=== PATIENT | female | born 1990 | race Two or more races ===

== ENCOUNTER 2018-01-29 05:04 | Emergency (ER) | payer MEDICAID ==
[~2018-01-29] VITALS: Ht 157.5 cm; Wt 79.4 kg
[2018-01-29] MEDS ORDERED: HYDROmorphone 1mg/ml Carpuject IVP ONE (05:30)
[2018-01-29] MEDS ORDERED: cefTRIAXone 1 GM in NS 55 ML IVPB ONE (05:30)
[2018-01-29] MEDS ORDERED: Vancomycin 1.5gm/D5W 250ml 250 ML IVPB ONE (05:30)
[2018-01-29 05:42] VITALS: BP 117/76
[2018-01-29 05:53] LABS: EOSINOPHILS % (AUTO) 1.4 % (0.0-3.0); HEMOGLOBIN 14.3 G/DL (12.0-16.0); LYMPHOCYTES % (AUTO) 21.5 % (20.0-45.0); MEAN CORPUSCULAR VOLUME 87 FL (80-99); MONOCYTES % (AUTO) 6.7 % (1.0-10.0); NEUTROPHILS % (AUTO) 69.4 % (45.0-75.0); PLATELET COUNT 434 K/UL (150-450); RED BLOOD COUNT 4.74 M/UL (4.20-5.40); RED CELL DISTRIBUTION WIDTH 11.1 % (11.6-14.8)
[2018-01-29] MEDS ORDERED: DOXYCYCLINE MO100 MG ORAL (05:55)
[2018-01-29 05:56] LABS: WHITE BLOOD COUNT 14.3 K/UL (4.8-10.8)
--- NOTE | 2018-01-29 05:56 | Emergency Room Report ---
History of Present Illness General Chief Complaint: Pain Source: Patient Present Illness HPI This is a 27-year-old female with no significant past medical history. She presents with right breast pain. Onset for last 2-3 days. She was seen at [facility] on the . Labs are unremarkable. She had an ultrasound which show soft tissue edema but no fluid collection. She was discharged on clindamycin and [place]. She only filled the clindamycin prescription. She is down here and [place] visiting family in because of increasing pain she came to the hospital. Pain is 10 out of 10. Worse with movement. No fever chills but no nausea no vomiting. occasional purulent discharge from the nipple with squeezing. She is not and is not breast-feeding. Allergies: Coded Allergies: No Known Allergies (Unverified , 01/29/18) Patient History Past Medical History: see triage record, old chart reviewed Past Surgical History: none Pertinent Family History: none Social History: Denies: smoking Last Menstrual Period: 01/25/18 Now: No Immunizations: other Reviewed Nursing Documentation: PMH: Agreed; PSxH: Agreed Nursing Documentation-PMH Past Medical History: No History, Except For Hx Cardiac Problems: No - Right breast Cellulitis Review of Systems Eye: Denies: eye pain, blurred vision ENT: Denies: ear pain, nose congestion, throat swelling Respiratory: Denies: cough, shortness of breath Cardiovascular: Denies: chest pain, palpitations Gastrointestinal: Denies: abdominal pain, diarrhea, nausea, vomiting Musculoskeletal: Denies: back pain, joint pain Skin: Denies: rash Neurological: Denies: headache, numbness Endocrine: Denies: increased thirst, increased urine Hematologic/Lymphatic: Denies: easy bruising All Other Systems: negative except mentioned in HPI Physical Exam Vital Signs Date Time Temp Pulse Resp B/P (MAP) Pulse Ox O2 Delivery O2 Flow Rate FiO2 01/29/18 05:11 98.0 95 16 117/76 99 Room Air 98.1 vitals normal Sp02 EP Interpretation: reviewed, normal General Appearance: well appearing, no apparent distress, alert Head: normocephalic, atraumatic Eyes: bilateral eye PERRL, bilateral eye EOMI ENT: hearing grossly normal, normal pharynx Neck: full range of motion, supple, no meningismus Respiratory: chest non-tender, lungs clear, normal breath sounds, other - Breast exam done with female RNs as chaperones. Right breast, just medial to the area low at 2 to 3 o'clock position, there is an indurated area of about 2- 3 cm. Very tender to palpation. No redness. No discharge from nipple. Cardiovascular #1: regular rate, rhythm, no murmur Gastrointestinal: normal bowel sounds, non tender, no mass, no organomegaly, no bruit, non-distended Musculoskeletal: back normal, gait/station normal, normal range of motion Psychiatric: mood/affect normal Skin: warm/dry Procedures Incision and Drainage Incision and Drainage : Consent: Verbal Site: right breast Blade Size: 11 I & D Procedure: betadine prep, sterile drapes applied, gauze wick placed Anesthesia: 1% Lidocaine Volume Anesthetic (ccs): 5 Patient Tolerated: Well Complications: None Progress Area cleaned with Betadine and then chlorhexidine. Local anesthetic with 1% lidocaine without epinephrine. Using an 18-gauge needle, was able to aspirate scant amount of pus over the most purulent area. I made a 1 cm incision along the skin line of the areola. Loculated area open up with Brenda forcep. Minimal amount of pus expressed. I place a small iodoform gauze to the area. Patient tolerated procedure without problem Medical Decision Making Diagnostic Impression: Primary Impression: Abscess of breast, right ER Course Patient with a small abscess of the right breast. She is not and not breast-feeding. Labs unremarkable. Gave her a dose of vancomycin and Rocephin here. We'll discharge home with addition of doxycycline. I called [facility] and verified the ultrasound reading. It only showed soft tissue edema worisome for underlying cellulitis. No fluid collection seen. This is most likely early abscess formation now. Last Vital Signs Date Time Temp Pulse Resp B/P (MAP) Pulse Ox O2 Delivery O2 Flow Rate FiO2 01/29/18 05:11 98.0 95 16 117/76 99 Room Air 98.1 Status: improved Disposition: HOME, SELF-CARE Condition: Stable Scripts Doxycycline Monohydrate* (DOXYCYCLINE MONOHYDRATE*) 100 Mg Capsule 100 MG ORAL Q12H, #14 CAP 0 Refills Prov: PRAVEEN RANGEL M.D. 01/29/18 Additional Instructions: Warm compress to breast. Follow-up within 2 days for recheck. Return if worse. PRAVEEN RANGEL M.D. Jan 29, 2018 05:56
[2018-01-29 06:06] LABS: ANION GAP 11 mmol/L (5-15); BLOOD UREA NITROGEN 10 mg/dL (7-18); CALCIUM 9.4 MG/DL (8.5-10.1); CARBON DIOXIDE 25 MMOL/L (21-32); CHLORIDE 101 MMOL/L (98-107); CREATININE 0.7 MG/DL (0.55-1.30); POTASSIUM 4.1 MMOL/L (3.5-5.1); SODIUM 137 MMOL/L (136-145)
[2018-01-29 08:17] VITALS: BP 118/76
== END 2018-01-29 08:21 | disposition home or self-care (01) ==
LOC: EMR 05:30
DX: N61.1 Abscess of the breast and nipple (principal)
CPT/HCPCS: 10060; 36415; 80048; 85025; 96361; 96374; 96375; 99284; J0696; J1170; J2405; J3370

== ENCOUNTER 2018-01-31 11:33 | Emergency (ER) | payer MEDICAID ==
[~2018-01-31] VITALS: Ht 157.5 cm; Wt 79.4 kg
[~2018-01-31 11:33] MED LIST: DOXYCYCLINE MO100 MG ORAL
[2018-01-31 12:18] VITALS: BP 111/71
--- NOTE | 2018-01-31 12:50 | Emergency Room Report ---
History of Present Illness General Chief Complaint: Wound Recheck/Suture Removal Source: Patient Present Illness HPI 27-year-old female presents ED for evaluation. Patient here for wound check. Had I and D performed on her right breast 2 days ago. States pain is overall improved. Here to have packing removed. Pain is currently 5 out of 10, dull, nonradiating. Currently taking antibiotic prescribed. Denies fevers or chills. Denies any discharge. No other aggravating or relieving factors. Denies any other associated symptoms Allergies: Coded Allergies: No Known Allergies (Unverified , 01/29/18) Patient History Past Surgical History: none Pertinent Family History: none Social History: Denies: smoking, alcohol use, drug use Last Menstrual Period: 3-21 Now: No Immunizations: UTD Reviewed Nursing Documentation: PMH: Agreed; PSxH: Agreed Nursing Documentation-PMH Past Medical History: No History, Except For Hx Cardiac Problems: No - Right breast Cellulitis Review of Systems All Other Systems: negative except mentioned in HPI Physical Exam Vital Signs Date Time Temp Pulse Resp B/P (MAP) Pulse Ox O2 Delivery O2 Flow Rate FiO2 01/31/18 11:40 98.3 79 18 108/68 98 Room Air 98.2 Sp02 EP Interpretation: reviewed, normal General Appearance: no apparent distress, alert, GCS 15, non-toxic Head: normocephalic Eyes: bilateral eye normal inspection, bilateral eye PERRL ENT: normal ENT inspection Neck: normal inspection Respiratory: normal inspection Cardiovascular #1: normal inspection Gastrointestinal: normal inspection Rectal: deferred Genitourinary: no CVA tenderness Musculoskeletal: normal inspection Neurologic: alert, oriented x3, responsive, motor strength/tone normal, sensory intact, speech normal Psychiatric: normal inspection Skin: other - abscess site C/D/I, no active drainge. improved induration/ erythema Lymphatic: normal inspection Medical Decision Making Diagnostic Impression: Primary Impression: Encounter for wound re-check Additional Impression: Breast abscess of female ER Course Hospital Course 27-year-old F presents to ED for wound check. s/p I&D R breast abscess Clinical course Patient placed on stretcher. Wound appears clean dry and intact with induration and erythema improved compared to prior visit. Packing removed. No additional intervention at this time Discussed with patient and . Recommend continuing antibiotics. Warm compresses. Follow-up with PMD Diagnosis - encounter for wound re-check, breast abscess Stable and discharged to home. continue abx as directed. Followup with PMD. Return to ED if any signs of infection develop Last Vital Signs Date Time Temp Pulse Resp B/P (MAP) Pulse Ox O2 Delivery O2 Flow Rate FiO2 01/31/18 12:18 98.1 71 16 111/71 100 Room Air 98.2 Status: improved Disposition: HOME, SELF-CARE Condition: Stable Referrals: NOT CHOSEN IPA/,REFERRING (PCP) Patient Instructions: Wound Check Additional Instructions: complete antibiotics. warm compresses. f/u with PMD. return to ED if symptoms recur/worsen. LAKISHA MILLER M.D. Jan 31, 2018 12:50
== END 2018-01-31 12:20 | disposition home or self-care (01) ==
LOC: EMR 11:55
DX: Z48.03 Encounter for change or removal of drains (principal); N61.1 Abscess of the breast and nipple
CPT/HCPCS: 99281

== ENCOUNTER 2018-03-31 14:18 | Emergency (ER) | payer SELFPAY ==
[~2018-03-31] VITALS: Ht 157.5 cm; Wt 81.6 kg
[2018-03-31] MEDS ORDERED: Acetaminophen 500mg (ES) tab ORAL ONE (15:00)
--- NOTE | 2018-03-31 15:04 | Emergency Room Report ---
History of Present Illness General Chief Complaint: General Complaint Source: Patient Present Illness HPI 27-year-old female patient presents ER complaining of abscess on her right breast and swelling in legs. Patient reports abscess has been present for 2 months, states that he slipped and seen by on CT and treated. Reports had abscess drained 2 months ago. Reports abscess never fully went away, states was seen at another ER 2 days ago and prescribed Bactrim, currently taking medication, reports test performed at that time negative.. Reports has not had any mammogram performed. Denies fever, shortness of breath, weight loss. Patient also complains of bilateral foot swelling. Patient reports pain with walking. denies past medical history, not currently taking any medications. Denies history of cancer or drug use, denies currently taking control medications. Denies at this time. denies recent travel. LMP 02/21/18. Allergies: Coded Allergies: No Known Allergies (Unverified , 01/29/18) Patient History Past Medical History: see triage record Reviewed Nursing Documentation: PMH: Agreed; PSxH: Agreed Nursing Documentation-PMH Past Medical History: No History, Except For Hx Cardiac Problems: No - Right breast Cellulitis Review of Systems All Other Systems: negative except mentioned in HPI Physical Exam Vital Signs Date Time Temp Pulse Resp B/P (MAP) Pulse Ox O2 Delivery O2 Flow Rate FiO2 03/31/18 14:33 98.3 96 16 112/70 98 Room Air 98.2 Sp02 EP Interpretation: reviewed, normal General Appearance: well appearing, no apparent distress, alert, GCS 15, non- toxic Head: normocephalic, atraumatic Eyes: bilateral eye normal inspection, bilateral eye PERRL ENT: hearing grossly normal, normal pharynx, no angioedema, normal voice, uvula midline, moist mucus membranes Neck: full range of motion Respiratory: lungs clear, normal breath sounds, no rhonchi, no respiratory distress, no accessory muscle use, no wheezing, speaking full sentences Cardiovascular #1: regular rate, rhythm, no edema Gastrointestinal: non tender, soft, no mass, non-distended, no guarding, no rebound Genitourinary: no CVA tenderness Musculoskeletal: back normal, digits/nails normal, gait/station normal, normal range of motion, non-tender, Tim's Sign negative, swelling - bilateral feet, bony changes noted in PIP joints of hands Neurologic: alert, oriented x3, responsive, motor strength/tone normal, sensory intact Psychiatric: mood/affect normal Skin: other - right breasts: 4 cm round mass at 1 to 2 o'clock position of right breast, small incision noted at the inferior aspect, no active drainage, small amount of blood noted, no pus, Lymphatic: no adenopathy Medical Decision Making PA Attestation Dr. Leone is my supervising Physician whom patient management has been discussed with. Diagnostic Impression: Primary Impression: Breast abscess of female Additional Impressions: Swollen feet ER Course Pt. presents to the ED c/o abscess and feet swelling. multiple differentials considered. Does not require imaging at this time. Vital signs: are WNL, pt. is afebrile ordered labs, Medication an ultrasound. ER course: Swelling of feet and hands likely related to possible underlying systemic disease including but not limited to arthritis and/or SLE, will order ESR. Patient seen and evaluated with Dr. Leone, decreased with treatment plan. Urinalysis shows no nitrites, many epithelial cells, low suspicion for UTI, patient asymptomatic, does not require antibiotic treatment at this time. Urine positive, ordered pelvic ultrasound and beta hCG labs. Provided Tylenol for pain. Instructed patient to discontinue Bactrim. Will provide alternative abx treatment. Surgical consult Dr. Rueda for breast abscess, see his attached note. Apply warm compresses, will provide antibiotic coverage, stop taking Bactrim. ultrasound of her right breast shows a 4 cm hypoechoic structure, likely abscess , provide patient with copy of report. RICE method, applied [place] wraps to patient's feet bilaterally. Take Tylenol for pain, do not take Motrin or other NSAIDs. CBC and CMP unremarkable, slight elevation of WBC likely related to versus abscess versus pain. ESR elevated, possibly related to underlying etiology, informed patient of results, follow up with primary care provider and requests referral to acid patroller. Discuss further treatment at referral at that time. Patient begin vitamins to take Tylenol for pain symptoms. [place] wraps applied to feet bilaterally. Patient reports pain symptoms improved during stay. Patient able to ambulate independently. pelvic ultrasound shows no intrauterine . . HCG levels 77, likely too early in to visualize IUP vs ectopic vs spontaneous , instructed patient to follow-up with [facility] for repeat imaging and serial beta hCG levels. Provided patient with contact information for free and low-cost healthcare clinics. Patient reports she will followup in 1-2 days for repeat images and labs. Patient blood type O, Rh antibody negative, followup with OBGYN, may require RHOGAM. Informed patient of blood type. Patient resting comfortably, in no acute distress, nontoxic appearing, patient discharged home. DISCHARGE: Rx provided for Tylenol Rx provided for Keflex At this time pt. is stable for d/c to home. Patient is resting comfortably, in no acute distress, nontoxic appearing. Will provide printed patient care instructions and any necessary prescriptions. Care plan and follow up instructions have been discussed with the patient prior to discharge. Patient instructed to follow-up with primary care provider in 2 - 3 days for wound recheck. Patient questions asked and answered. Patient reports understanding and agreement to treatment plan. ER precautions given. Patient instructed to return to ER immediately for any new or worsening of symptoms including but not limited to fever, worsening of pain symptoms, worsening of erythema, red streaking. - Please note that this Emergency Department Report was dictated using [employer]jix[employer] surgeon technology software, occasionally this can lead to erroneous entry secondary to interpretation by the dictation equipment. Labs Test 03/31/18 15:19 White Blood Count 12.9 K/UL (4.8-10.8) Red Blood Count 4.29 M/UL (4.20-5.40) Hemoglobin 12.3 G/DL (12.0-16.0) Hematocrit 37.0 % (37.0-47.0) Mean Corpuscular Volume 86 FL (80-99) Mean Corpuscular Hemoglobin 28.8 PG (27.0-31.0) Mean Corpuscular Hemoglobin Concent 33.3 G/DL (32.0-36.0) Red Cell Distribution Width 10.8 % (11.6-14.8) Platelet Count 455 K/UL (150-450) Mean Platelet Volume 5.2 FL (6.5-10.1) Neutrophils (%) (Auto) 73.0 % (45.0-75.0) Lymphocytes (%) (Auto) 19.9 % (20.0-45.0) Monocytes (%) (Auto) 5.4 % (1.0-10.0) Eosinophils (%) (Auto) 1.2 % (0.0-3.0) Basophils (%) (Auto) 0.5 % (0.0-2.0) Erythrocyte Sedimentation Rate 105 MM/HR (0-20) Urine Color Yellow Urine Appearance Slightly cloudy Urine pH 6.5 (4.5-8.0) Urine Specific Blair 1.015 (1.005-1.035) Urine Protein Negative (NEGATIVE) Urine Glucose (UA) Negative (NEGATIVE) Urine Ketones Negative (NEGATIVE) Urine Occult Blood 1+ (NEGATIVE) Urine Nitrite Negative (NEGATIVE) Urine Bilirubin Negative (NEGATIVE) Urine Urobilinogen 4 MG/DL (0.0-1.0) Urine Leukocyte Esterase 2+ (NEGATIVE) Urine RBC 2-4 /HPF (0 - 2) Urine WBC 2-4 /HPF (0 - 2) Urine Squamous Epithelial Cells Moderate /LPF (NONE/OCC) Urine Bacteria Few /HPF (NONE) Urine HCG, Qualitative Positive (NEGATIVE) Sodium Level 137 MMOL/L (136-145) Potassium Level 3.7 MMOL/L (3.5-5.1) Chloride Level 102 MMOL/L (98-107) Carbon Dioxide Level 26 MMOL/L (21-32) Anion Gap 10 mmol/L (5-15) Blood Urea Nitrogen 11 mg/dL (7-18) Creatinine 0.8 MG/DL (0.55-1.30) Estimat Glomerular Filtration Rate > 60 mL/min (>60) Glucose Level 112 MG/DL (74-106) Calcium Level 9.5 MG/DL (8.5-10.1) Total Bilirubin 0.4 MG/DL (0.2-1.0) Aspartate Amino Transf (AST/SGOT) 35 U/L (15-37) Alanine Aminotransferase (ALT/SGPT) 74 U/L (12-78) Alkaline Phosphatase 163 U/L (46-116) Total Protein 8.6 G/DL (6.4-8.2) Albumin 3.3 G/DL (3.4-5.0) Globulin 5.3 g/dL Albumin/Globulin Ratio 0.6 (1.0-2.7) Lipase 111 U/L (73-393) Human Chorionic Gonadotropin, Quant 77 mIU/mL (1-6) CT/MRI/US Diagnostic Results CT/MRI/US Diagnostic Results #1: Imaging Test Ordered: Pelvic US Impression No definite intrauterine demonstrated. There is a small fluid collection in the endometrium, but this cannot be definitively characterized as a gestational sac. Differential considerations include very early , spontaneous , ectopic . Correlate with serial beta hCGs, consider follow-up sonography is indicated Negative for adnexal mass Small amount of free cul-de-sac fluid, presumably physiologic CT/MRI/US Diagnostic Results #2: Imaging Test Ordered: Right Breast US Impression Irregular hypoechoic region at 12-to-2 o'clock position of the right breast near the subareolar region measuring up to approximately 4 cm, concerning for abscess or hematoma. Last Vital Signs Date Time Temp Pulse Resp B/P (MAP) Pulse Ox O2 Delivery O2 Flow Rate FiO2 03/31/18 14:33 98.3 96 16 112/70 98 Room Air 98.2 Disposition: HOME, SELF-CARE Condition: Stable Scripts Cephalexin* (KEFLEX*) 500 Mg Capsule 500 MG ORAL EVERY 12 HOURS, #14 CAP 0 Refills Prov: Mike Soria 03/31/18 Acetaminophen* (TYLENOL EXTRA STRENGTH*) 500 Mg Tablet 500 MG ORAL Q8H PRN for Prn Headache/Temp > 101, #30 TAB 0 Refills Prov: Miek Soria 03/31/18 Patient Instructions: Abscess, [id number], Breast Cyst, First Trimester of , [id number], Peripheral Edema, Rheumatoid Arthritis Additional Instructions: Followup with OBGYN in 1-2 days. Need repeat imaging and serial hCGs. Begin vitamins. provide patient with contact information for free and low-cost clinics. Establish care with primary care provider. Follow-up with primary care provider for management of abscess. Apply warm compresses, keep area clean and dry. Discuss further treatment and referral as needed, may need referral to acid patroller for possible arthritis vs SLE. Stop taking Bactrim. Take medications as directed. Take Tylenol for pain, do not take Ibuprofen or Motrin. Instructed patient on RICE method: rest, ice, compression, elevation. Patient questions asked and answered. ER precautions given, patient instructed to return to ER immediately for any new or worsening of symptoms including but not limited to chest pain, SOB, intractable vomiting, profuse vaginal bleeding, abdominal pain. Blood type O positive Rh antibody negative BHCG level 77 Mike Soria March 31, 2018 15:03
[2018-03-31 15:29] LABS: APPEARANCE,URINE SLIGHTLY CLOUDY; BILIRUBIN, URINE NEGATIVE (NEGATIVE); GLUCOSE, URINE (UA) NEGATIVE (NEGATIVE); KETONES,URINE NEGATIVE (NEGATIVE); LEUKOCYTE ESTERASE ,URINE 2+ (NEGATIVE); NITRITE,URINE NEGATIVE (NEGATIVE); PH,URINE 6.5 (4.5-8.0); PROTEIN,URINE NEGATIVE (NEGATIVE); UROBILINOGEN,URINE 4 MG/DL (0.0-1.0)
[2018-03-31 15:33] LABS: COLOR,URINE YELLOW
[2018-03-31 15:35] LABS: BASOPHILS % (AUTO) 0.5 % (0.0-2.0); EOSINOPHILS % (AUTO) 1.2 % (0.0-3.0); HEMOGLOBIN 12.3 G/DL (12.0-16.0); LYMPHOCYTES % (AUTO) 19.9 % (20.0-45.0); MEAN CORPUSCULAR VOLUME 86 FL (80-99); MONOCYTES % (AUTO) 5.4 % (1.0-10.0); PLATELET COUNT 455 K/UL (150-450); RED BLOOD COUNT 4.29 M/UL (4.20-5.40); RED CELL DISTRIBUTION WIDTH 10.8 % (11.6-14.8); WHITE BLOOD COUNT 12.9 K/UL (4.8-10.8)
[2018-03-31 15:43] LABS: ANION GAP 10 mmol/L (5-15); BLOOD UREA NITROGEN 11 mg/dL (7-18); CALCIUM 9.5 MG/DL (8.5-10.1); CARBON DIOXIDE 26 MMOL/L (21-32); CHLORIDE 102 MMOL/L (98-107); CREATININE 0.8 MG/DL (0.55-1.30); POTASSIUM 3.7 MMOL/L (3.5-5.1); SODIUM 137 MMOL/L (136-145)
[2018-03-31 15:47] LABS: ALANINE AMINOTRANSFERASE 74 U/L (12-78); ALBUMIN 3.3 G/DL (3.4-5.0); ALBUMIN/GLOBULIN RATIO 0.6 (1.0-2.7); ALKALINE PHOSPHATASE 163 U/L (46-116); ASPARTATE AMINO TRANSFERASE 35 U/L (15-37); BILIRUBIN,TOTAL 0.4 MG/DL (0.2-1.0)
--- NOTE | 2018-03-31 16:49 | Diagnostic Imaging Report ---
Indication: Positive test, pelvic pain Technique: Transabdominal and transvaginal images Comparison: none Findings: Uterus measures 9.1 cm length by 4.3 cm AP. The endometrium measures 21 mm thick. A tiny 5 mm Fluid collection is seen within the fundal endometrium, but no definite intrauterine gestational sac is demonstrated. No myometrial abnormality. There is a small cervical nabothian cyst. There is a small amount of free cul-de-sac fluid. The right ovary measures 3 cm in length. Left ovary measures 3.7 cm in length. No adnexal mass demonstrated. There is a small amount of free cul-de-sac fluid Impression: No definite intrauterine demonstrated. There is a small fluid collection in the endometrium, but this cannot be definitively characterized as a gestational sac. Differential considerations include very early , spontaneous , ectopic . Correlate with serial beta hCGs, consider follow-up sonography is indicated Negative for adnexal mass Small amount of free cul-de-sac fluid, presumably physiologic
--- NOTE | 2018-03-31 17:22 | Diagnostic Imaging Report ---
EXAM: US Right Breast, Limited CLINICAL HISTORY: ABSCESS TECHNIQUE: Real-time ultrasound scan of the right breast with image documentation. COMPARISON: No relevant prior studies available. FINDINGS: Breast: Irregular hypoechoic region at 12-to-2 o'clock position of the right breast near the subareolar region measuring up to approximately 4 cm, concerning for abscess or hematoma. IMPRESSION: Irregular hypoechoic region at 12-to-2 o'clock position of the right breast near the subareolar region measuring up to approximately 4 cm, concerning for abscess or hematoma.
--- NOTE | 2018-03-31 17:36 | General Progress Note ---
Progress Note Progress Note Surgery: 27F right breast pain. had history of abscess in right breast two months ago s/ p I&D in ED with evacuation of pus. since healing well. noted pain and swelling a few days ago and went out outside facility where she was told it was cellulitis and was given abx. test at that time negative. since noted spontaneous drainage from area of swelling and came to ED today for evaluation. same area as I&D prior. pus noted. erythema/edema with underlying cellulitis. afebrile, HD stable, mild leukocytosis. test here positive by blood and urine. -given spontaneously draining, no acute surgical intervention necessary. likely recurrent abscess. possible underlying ductal injury but unlikely. -warm compress, cont to push out pus, keep site clean -oral abx safe in -recheck test in a few days to ensure accurate. see third rail installer HAYDEE as outpatient. -needs to establish PCP to monitor and also seek surgeon outpatient. okay to follow up with me if desired Chele Rueda March 31, 2018 17:36
[2018-03-31] MEDS ORDERED: TYLENOL EXTRA500 MG ORAL (18:00)
[2018-03-31] MEDS ORDERED: CEPHALEXIN500 MG ORAL (18:27)
[2018-03-31 19:30] VITALS: BP 122/81
[2018-03-31 20:45] VITALS: BP 122/81
== END 2018-03-31 20:45 | disposition home or self-care (01) ==
LOC: EMR 15:23
DX: O91.111 Abscess of breast associated with pregnancy, first trimester (principal); O26.891 Other specified pregnancy related conditions, first trimester; Z3A.00 Weeks of gestation of pregnancy not specified; M79.89 Other specified soft tissue disorders
CPT/HCPCS: 36415; 76801; 76830; 80053; 81003; 81025; 83690; 84702; 85025; 85651; 86850; 86900; 86901; 99283

== ENCOUNTER 2018-04-02 13:38 | Emergency (ER) | payer SELFPAY ==
[~2018-04-02] VITALS: Ht 157.5 cm; Wt 81.6 kg
[~2018-04-02 13:38] MED LIST changes: +CEPHALEXIN500 MG ORAL; +TYLENOL EXTRA500 MG ORAL
[2018-04-02 13:52] VITALS: BP 114/70
--- NOTE | 2018-04-02 13:56 | Emergency Room Report ---
History of Present Illness General Chief Complaint: General Complaint Source: Patient, Medical Record (Mike Soria) Present Illness HPI 27-year-old female patient presented to ER for repeat labs. Patient was seen in this ER 2 days ago had prep positive test with questionable ultrasound at that time. contact patient by phone earlier today, Patient reports she has not been able to see an PRODUCT DEVELOPMENT ECOLOGIST specialist for repeat labs, instructed patient to return OM for repeat labs. Patient is here for a repeat hCG. Patient denies acute symptoms. Patient denies vaginal bleeding, hematuria , dysuria. Patient denies fever, chest pain, shortness of breath. (Mike Soria) Allergies: Coded Allergies: No Known Allergies (Unverified , 01/29/18) Patient History Past Medical History: see triage record Last Menstrual Period: Now: Yes Reviewed Nursing Documentation: PMH: Agreed; PSxH: Agreed (Mike Soria) Nursing Documentation-PMH Past Medical History: No History, Except For Hx Cardiac Problems: No - Right breast Cellulitis (Mike Soria) Review of Systems All Other Systems: negative except mentioned in HPI (Mike Soria) Physical Exam Vital Signs Date Time Temp Pulse Resp B/P (MAP) Pulse Ox O2 Delivery O2 Flow Rate FiO2 04/02/18 13:44 97.9 89 18 114/70 97 Room Air 97.9 Sp02 EP Interpretation: reviewed, normal General Appearance: well appearing, no apparent distress, alert, GCS 15, non- toxic Head: normocephalic, atraumatic Eyes: bilateral eye normal inspection, bilateral eye PERRL ENT: hearing grossly normal, normal pharynx, no angioedema, normal voice, uvula midline, moist mucus membranes Neck: full range of motion Respiratory: lungs clear, normal breath sounds, no rhonchi, no respiratory distress, no accessory muscle use, no wheezing, speaking full sentences Cardiovascular #1: regular rate, rhythm, no edema Gastrointestinal: non tender, soft, no mass, non-distended, no guarding, no rebound Genitourinary: no CVA tenderness Musculoskeletal: back normal, digits/nails normal, gait/station normal, normal range of motion, non-tender Neurologic: alert, oriented x3, responsive, motor strength/tone normal, sensory intact Psychiatric: mood/affect normal Skin: other - right breast: Healing abscess, no surrounding erythema or edema, tenderness to palpation (Mike Soria) Medical Decision Making PA Attestation Dr. Terrell is my supervising Physician whom patient management has been discussed with. (Mike Soria) Diagnostic Impression: Primary Impression: Encounter for laboratory test Additional Impressions: Qualified Codes: Z3A.01 - Less than 8 weeks gestation of Breast abscess of female ER Course Pt. presents to the ED for repeat labs. Ddx considered but are not limited to , spontaneous , ectopic Vital signs: are WNL, pt. is afebrile ordered CBC, CMP and BHCG. ER course: Physical exam benign. Patient denies acute symptoms at this time, denies bloody vaginal discharge, abdominal pain, or shortness of breath. Reports symptoms improved since previous visit. Reviewed labs from previous visit. CBC and CMP unremarkable, consistent with previous visit, no elevation in WBCs. Hemoglobin levels consistent with previous visit, low suspicion for acute blood loss. BHCG levels increased from previous visit, from 77 to 170, consistent with normal increase. informed patient she needs to follow up with PRODUCT DEVELOPMENT ECOLOGIST specialist for continued monitoring of hCG levels and repeat imaging to rule out spontaneous versus ectopic . Needs followup to begin vitamins. patient [facility], will follow up tomorrow. Patient reports she has follow-up appointment for abscess scheduled for , will follow up then. Instructed patient to take Tylenol for pain symptoms Abscess appears consistent with previous visit, no worsening of symptoms. No surrounding erythema or edema, no worsening of infection noted at this time. Continue take medications as previously indicated. DISCHARGE: At this time pt is stable for d/c to home. Patient is resting comfortably, in no acute distress, nontoxic appearing, talking without difficulty. Patient to take medications as instructed Will provide with patient care instructions and any necessary prescriptions. Care plan and follow-up instructions provided. Patient instructed to follow-up with primary care provider in 3 - 5 days. Patient questions asked and answered. Patient reports understanding and agreement to treatment plan. ER precautions given. Patient instructed to return to ER immediately for any new or worsening of symptoms including but not limited to increasing SOB, persistent fever, chest pain, intractyable vomiting. - Please note that this Emergency Department Report was dictated using [employer] hand technology software, occasionally this can lead to erroneous entry secondary to interpretation by the dictation equipment. Labs Test 04/02/18 14:10 White Blood Count 12.3 K/UL (4.8-10.8) Red Blood Count 4.34 M/UL (4.20-5.40) Hemoglobin 12.5 G/DL (12.0-16.0) Hematocrit 37.6 % (37.0-47.0) Mean Corpuscular Volume 87 FL (80-99) Mean Corpuscular Hemoglobin 28.8 PG (27.0-31.0) Mean Corpuscular Hemoglobin Concent 33.2 G/DL (32.0-36.0) Red Cell Distribution Width 11.1 % (11.6-14.8) Platelet Count 483 K/UL (150-450) Mean Platelet Volume 5.1 FL (6.5-10.1) Neutrophils (%) (Auto) 73.5 % (45.0-75.0) Lymphocytes (%) (Auto) 20.6 % (20.0-45.0) Monocytes (%) (Auto) 3.7 % (1.0-10.0) Eosinophils (%) (Auto) 1.1 % (0.0-3.0) Basophils (%) (Auto) 1.1 % (0.0-2.0) Sodium Level 137 MMOL/L (136-145) Potassium Level 3.6 MMOL/L (3.5-5.1) Chloride Level 104 MMOL/L (98-107) Carbon Dioxide Level 20 MMOL/L (21-32) Anion Gap 13 mmol/L (5-15) Blood Urea Nitrogen 11 mg/dL (7-18) Creatinine 0.7 MG/DL (0.55-1.30) Estimat Glomerular Filtration Rate > 60 mL/min (>60) Glucose Level 117 MG/DL (74-106) Calcium Level 9.1 MG/DL (8.5-10.1) Total Bilirubin 0.2 MG/DL (0.2-1.0) Aspartate Amino Transf (AST/SGOT) 38 U/L (15-37) Alanine Aminotransferase (ALT/SGPT) 77 U/L (12-78) Alkaline Phosphatase 174 U/L (46-116) Total Protein 8.9 G/DL (6.4-8.2) Albumin 3.3 G/DL (3.4-5.0) Globulin 5.6 g/dL Albumin/Globulin Ratio 0.6 (1.0-2.7) Human Chorionic Gonadotropin, Quant 170 mIU/mL (1-6) (Mike Soria) ER Course Please review also visit from 03/31 for breast abscess. Leukocytosis felt related to this. (Ruben Terrell M.D.) Last Vital Signs Date Time Temp Pulse Resp B/P (MAP) Pulse Ox O2 Delivery O2 Flow Rate FiO2 04/02/18 13:44 97.9 89 18 114/70 97 Room Air 97.9 (Mike Soria) Disposition: HOME, SELF-CARE Condition: Stable Patient Instructions: First Trimester of , [id number] Additional Instructions: Follow-up with PRODUCT DEVELOPMENT ECOLOGIST specialist for repeat labs and imaging. Followup with primary care provider in 3 -5 days. Keep breast abscess clean and dry. Take Tylenol for pain. Follow up at scheduled appointment for breast abscess. Take medications as directed. Patient questions asked and answered. ER precautions given, patient instructed to return to ER immediately for any new or worsening of symptoms. [facility] Mike Soria April 02, 2018 13:56 Ruben Terrell M.D. April 03, 2018 02:36
[2018-04-02 14:30] LABS: BASOPHILS % (AUTO) 1.1 % (0.0-2.0); EOSINOPHILS % (AUTO) 1.1 % (0.0-3.0); HEMATOCRIT 37.6 % (37.0-47.0); HEMOGLOBIN 12.5 G/DL (12.0-16.0); LYMPHOCYTES % (AUTO) 20.6 % (20.0-45.0); MEAN CORPUSCULAR VOLUME 87 FL (80-99); MONOCYTES % (AUTO) 3.7 % (1.0-10.0); NEUTROPHILS % (AUTO) 73.5 % (45.0-75.0); PLATELET COUNT 483 K/UL (150-450); RED BLOOD COUNT 4.34 M/UL (4.20-5.40); RED CELL DISTRIBUTION WIDTH 11.1 % (11.6-14.8); WHITE BLOOD COUNT 12.3 K/UL (4.8-10.8)
[2018-04-02 14:42] LABS: ANION GAP 13 mmol/L (5-15); BLOOD UREA NITROGEN 11 mg/dL (7-18); CALCIUM 9.1 MG/DL (8.5-10.1); CARBON DIOXIDE 20 MMOL/L (21-32); CHLORIDE 104 MMOL/L (98-107); CREATININE 0.7 MG/DL (0.55-1.30); POTASSIUM 3.6 MMOL/L (3.5-5.1); SODIUM 137 MMOL/L (136-145)
[2018-04-02 14:47] LABS: ALANINE AMINOTRANSFERASE 77 U/L (12-78); ALBUMIN 3.3 G/DL (3.4-5.0); ALBUMIN/GLOBULIN RATIO 0.6 (1.0-2.7); ALKALINE PHOSPHATASE 174 U/L (46-116); ASPARTATE AMINO TRANSFERASE 38 U/L (15-37); BILIRUBIN,TOTAL 0.2 MG/DL (0.2-1.0)
[2018-04-02 15:24] VITALS: BP 114/70
== END 2018-04-02 15:26 | disposition home or self-care (01) ==
LOC: EMR 14:17
DX: O26.899 Other specified pregnancy related conditions, unspecified trimester (principal); N61.1 Abscess of the breast and nipple; Z3A.00 Weeks of gestation of pregnancy not specified
CPT/HCPCS: 36415; 80053; 84702; 85025; 99283